=== PATIENT | female | born 2000 ===

== ENCOUNTER 2019-02-17 18:40 | Inpatient (IN) | payer OTHER ==
[~2019-02-17] VITALS: Ht 160 cm; Wt 83.9 kg
== END 2019-02-21 13:21 | disposition home or self-care (01) | DRG 788 ==
LOC: LDR 18:40 → O/R 02-18 14:13 → OB/GYN 02-18 15:43
PROVIDERS: ADMIT Obstetrics & Gynecology
PROC: 10D00Z1 Extraction of Products of Conception, Low, Open Approach (ICD-10-PCS; principal; 2019-02-17)
PROC: 4A1HXCZ Monitoring of Products of Conception, Cardiac Rate, External Approach (ICD-10-PCS; 2019-02-17)
DX: O62.0 Primary inadequate contractions (principal); Z3A.40 40 weeks gestation of pregnancy; Z37.0 Single live birth